=== PATIENT | female | born 1975 | race Caucasian/White ===

== ENCOUNTER 2017-01-22 10:22 | Emergency (ER) | payer MEDICAID ==
[2017-01-22] MEDS ORDERED: Sodium Chloride 0.9% 1,000 ML ONE (10:58)
[2017-01-22] MEDS ORDERED: Sodium Chloride 0.9% 1,000 ML IV ONE (10:59)
--- NOTE | 2017-01-22 11:00 | C.PDOC ---
History Of Present Illness 41 year old female with a Hx of migraines and headaches who presents to the ER with a complaint of a gradual on set of a right sided headache that began on Monday, associated with photophobia, phonophobia, and nausea. Patient states she took 2 separate doses of 2 Tylenols with no relief; she reports the pain is similar to previous headaches in the past. Patient reports she has tried taking imitrex in the past but does not like the side effects; she notes she has been under a lot of stress at work lately. Denies fever, chills, neck stiffness, and vomiting. Time Seen by Provider: 01/22/17 10:45 Chief Complaint (Nursing): Headache History Per: Patient History/Exam Limitations: no limitations Onset/Duration Of Symptoms: Days, Gradual Current Symptoms Are (Timing): Still Present Quality: Aching Preceeding Symptoms: None Associated Symptoms: Photophobia, Nausea. denies: Vomiting Recent travel outside of the [place]: No Past Medical History Reviewed: Historical Data, Nursing Documentation, Vital Signs Vital Signs: Last Vital Signs Temp 97.4 F L 01/22/17 12:25 Pulse 68 01/22/17 12:25 Resp 16 01/22/17 12:25 BP 110/74 01/22/17 12:25 Pulse Ox 98 01/26/17 11:20 - Medical History PMH: Migraine Surgical History: No Surg Hx Family History: States: Unknown Family Hx - Social History Hx Tobacco Use: No Hx Alcohol Use: No Hx Substance Use: No - Immunization History Hx Tetanus Toxoid Vaccination: No Hx Influenza Vaccination: Yes (05/2016) Hx Pneumococcal Vaccination: No Review Of Systems Constitutional: Negative for: Fever, Chills Gastrointestinal: Positive for: Nausea. Negative for: Vomiting, Abdominal Pain Skin: Negative for: Rash Neurological: Positive for: Headache. Negative for: Weakness, Numbness, Dizziness Physical Exam - Physical Exam Appears: Non-toxic, Other (appears uncomfortable) Skin: Normal Color, Warm, Dry Head: Atraumatic, Normacephalic Eye(s): bilateral: Normal Inspection, PERRL, EOMI Oral Mucosa: Moist Neck: Normal, Supple Chest: Symmetrical, No Tenderness Cardiovascular: Rhythm Regular, No Murmur Respiratory: Normal Breath Sounds, No Wheezing Gastrointestinal/Abdominal: Soft, No Tenderness Neurological/Psych: Oriented x3, Normal Speech, Normal Cognition, Normal Cranial Nerves, Normal Motor, Normal Sensation ED Course And Treatment O2 Sat by Pulse Oximetry: 98 (Room air) Pulse Ox Interpretation: Normal Medical Decision Making Medical Decision Making: Plan: * Reglan * IV fluids On reevaluation, patient is resting quietly and reports decreased pain, will add on tylenol. 1208 pm p[t feeling much better, sts she is ready to go home, will d/c with pmd and neuro f/u Disposition Counseled Patient/Family Regarding: Diagnosis, Need For Followup - Disposition Referrals: Leonard Pedroza MD [Staff Provider] - Disposition: HOME/ ROUTINE Disposition Time: 12:09 Condition: IMPROVED Additional Instructions: Stay well hydrated. Follow up with neurologist and PMD. Please take Tylenol at onset of headache. Maintain headache diary. Return to ER for any worsening symptoms. Instructions: Migraine Headache (ED) Forms: General Discharge Instructions, [facility] (Mongolian), Work Excuse - Clinical Impression Clinical Impression: Migraine - Scribe Statement The provider has reviewed the documentation as recorded by the Scribchetan Chandlre All medical record entries made by the Scribe were at my direction and personally dictated by me. I have reviewed the chart and agree that the record accurately reflects my personal performance of the history, physical exam, medical decision making, and the department course for this patient. I have also personally directed, reviewed, and agree with the discharge instructions and disposition.
--- NOTE | 2017-01-22 11:28 | C.PDOC ---
Time Seen by Provider: 01/22/17 10:45 Chief Complaint (Nursing): Headache Past Medical History Vital Signs: Last Vital Signs Temp 98.4 F 01/22/17 10:33 Pulse 97 H 01/22/17 10:33 Resp 20 01/22/17 10:33 BP 116/78 01/22/17 10:33 Pulse Ox 98 01/22/17 10:33 - Medical History PMH: Migraine Family History: States: Unknown Family Hx - Social History Hx Tobacco Use: No Hx Alcohol Use: No Hx Substance Use: No - Immunization History Hx Tetanus Toxoid Vaccination: No Hx Influenza Vaccination: Yes (05/2016) Hx Pneumococcal Vaccination: No ED Course And Treatment O2 Sat by Pulse Oximetry: 98 Disposition - Disposition Forms: [facility] ([place]ese)
[2017-01-22] MEDS ORDERED: Bacitracin 500 Units/gm Oint Foilpak UD ONE (12:21)
[2017-01-22 12:26] VITALS: BP 110/74; PULSE 68; RESP 16; TEMP 97.4
[2017-01-26 11:21] VITALS: O2SAT 98
== END 2017-01-22 12:45 | disposition home or self-care (01) ==
LOC: C.ER 10:22
DX: G43.909 Migraine, unspecified, not intractable, without status migrainosus (principal)
CPT/HCPCS: 96361; 96374; 99284; J2765; J7040

== ENCOUNTER 2017-03-10 09:52 | Emergency (ER) | payer MEDICAID ==
[2017-03-10 10:03] VITALS: O2SAT 100
[2017-03-10 10:09] VITALS: BMI 21.7
[2017-03-10] MEDS ORDERED: Sodium Chloride 0.9% 1,000 ML IV ONE (10:39)
--- NOTE | 2017-03-10 10:41 | C.PDOC ---
History Of Present Illness 42 year old female with a PMH of migraines, complains of right-sided throbbing headache since this morning. She reports this is typical of her migraine headaches. She also reports associated with nausea, vomiting, and photophobia. Patient took 2 Tylenol without relief. Denies head injury, dizziness, visual changes, numbness, or weakness. Time Seen by Provider: 03/10/17 10:29 Chief Complaint (Nursing): Headache History Per: Patient History/Exam Limitations: no limitations Onset/Duration Of Symptoms: Hrs (This morning) Current Symptoms Are (Timing): Still Present Severity: Mild Quality: Aching (Throbbing) Associated Symptoms: Photophobia, Nausea, Vomiting. denies: Blurred Vision, Extremity Weakness Recent travel outside of the [place]: No Additional History Per: Patient Past Medical History Reviewed: Historical Data, Nursing Documentation, Vital Signs Vital Signs: Last Vital Signs Temp 97.8 F 03/10/17 12:13 Pulse 70 03/10/17 12:13 Resp 16 03/10/17 12:13 BP 92/56 L 03/10/17 12:13 Pulse Ox 100 03/10/17 13:08 - Medical History PMH: Migraine Surgical History: No Surg Hx Family History: States: Unknown Family Hx - Social History Hx Tobacco Use: No Hx Alcohol Use: No Hx Substance Use: No - Immunization History Hx Tetanus Toxoid Vaccination: No Hx Influenza Vaccination: Yes (05/2016) Hx Pneumococcal Vaccination: No Review Of Systems Except As Marked, All Systems Reviewed And Found Negative. Constitutional: Negative for: Other (Head injury) Eyes: Positive for: Other (Photophobia). Negative for: Vision Change Gastrointestinal: Positive for: Nausea, Vomiting Neurological: Positive for: Headache. Negative for: Weakness, Numbness, Dizziness Physical Exam - Physical Exam Appears: Well, Non-toxic, No Acute Distress Skin: Warm, Dry Head: Atraumatic, Normacephalic Eye(s): bilateral: Normal Inspection, PERRL, EOMI, Photophobia Nose: Normal Oral Mucosa: Moist Neck: Normal ROM Chest: Symmetrical Cardiovascular: Rhythm Regular, No Murmur Respiratory: Normal Breath Sounds, No Rales, No Rhonchi, No Wheezing Extremity: Bilateral: Atraumatic, Normal Color And Temperature, Normal ROM Neurological/Psych: Oriented x3, Normal Speech, No Cerebellar Signs, Normal Motor, Normal Sensation, Other (No focal deficit) Gait: Steady ED Course And Treatment O2 Sat by Pulse Oximetry: 100 (RA) Pulse Ox Interpretation: Normal Medical Decision Making Medical Decision Making: Impression: Headache Prior records reviewed: Patient last seen 01/22/17 for migraines. Patient has multiple ER visits for similar Plan: * IV NS * Reglan * UDS Progress: 1155 On reevaluation, patient reports improvement of headache. Patient is resting comfortably, tolerating PO; no neurologic deficit, no fever, and no nuchal rigidity. Patient was instructed to follow up with physician/clinic in 1- 2 days for further evaluation or return to ED if symptoms persist or worsen. Patient's status improved during Emergency Department evaluation. Disposition Counseled Patient/Family Regarding: Diagnosis, Need For Followup, Rx Given - Disposition Referrals: [facility] [Outside] Meño Scott, EBONI, SE[employer]SEMBLER [Advanced Practice Nurse] - Disposition: HOME/ ROUTINE Disposition Time: 11:59 Condition: STABLE Additional Instructions: Follow up with your primary medical doctor in 2-5 days for further evaluation. Take medications as prescribed. Return to the emergency department at any time if symptoms persist or worsen. Instructions: Migraine Headache (ED) Forms: [facility] (Mongolian) - POA Present On Arrival: None - Clinical Impression Clinical Impression: Migraine - Scribe Statement The provider has reviewed the documentation as recorded by the Jeanibchetan fisher All medical record entries made by the Jeanibchetan were at my direction and personally dictated by me. I have reviewed the chart and agree that the record accurately reflects my personal performance of the history, physical exam, medical decision making, and the department course for this patient. I have also personally directed, reviewed, and agree with the discharge instructions and disposition.
[2017-03-10 10:43] VITALS: RESP 16
[2017-03-10] MEDS ORDERED: Sodium Chloride 0.9% 1,000 ML ONE (10:47)
[2017-03-10 11:33] LABS: RBC URINE 7 /hpf (0-3); URINE BACTERIA RARE (<OCC); URINE BILIRUBIN NEGATIVE (NEGATIVE); URINE BLOOD NEGATIVE (NEGATIVE); URINE COLOR Yellow (YELLOW); URINE GLUCOSE (UA) NORMAL (Normal); URINE KETONE NEGATIVE (NEGATIVE); URINE LEUKOCYTE ESTERASE 1+ Leu/uL (Negative); URINE PROTEIN NEGATIVE (NEGATIVE); URINE UROBILINOGEN NORMAL mg/dL (0.2-1.0); WBC URINE 11 /hpf (0-5)
[2017-03-10 12:14] VITALS: BP 92/56; PULSE 70; TEMP 97.8
== END 2017-03-10 12:48 | disposition home or self-care (01) ==
LOC: C.ER 09:52
DX: G43.909 Migraine, unspecified, not intractable, without status migrainosus (principal)
CPT/HCPCS: 80324; 80345; 80346; 80349; 80353; 80358; 80361; 81001; 83992; 96361; 96374; 99285; J2765; J7040

== ENCOUNTER 2018-01-24 18:14 | Emergency (ER) | payer MEDICAID, OTHER ==
[2018-01-24 18:32] VITALS: TEMP 98.2
--- NOTE | 2018-01-24 20:19 | C.PDOC ---
History Of Present Illness 42 year old female presents to the ED c/o right foot pain and swelling. Patient reports that while at work today a shelf fell and landed on her foot. Patient is ambulating with a light limp due to the pain. 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 Patient denies any other injury, weakness, numbness. Time Seen by Provider: 01/24/18 19:29 Chief Complaint (Nursing): Lower Extremity Problem/Injury History Per: Patient History/Exam Limitations: no limitations Onset/Duration Of Symptoms: Hrs Current Symptoms Are (Timing): Still Present Recent travel outside of the [place]: No Additional History Per: Patient - Ankle/Foot Description Of Injury: Struck Against Object Currently Unable To: Bend Or Move Alleviating Factor(s): denies: OTC Pain Medication Past Medical History Reviewed: Historical Data, Nursing Documentation, Vital Signs Vital Signs: Last Vital Signs Temp 98.2 F 01/24/18 18:30 Pulse 84 01/24/18 20:23 Resp 16 01/24/18 20:23 BP 122/81 01/24/18 20:23 Pulse Ox 100 01/24/18 23:12 - Medical History PMH: Migraine Surgical History: No Surg Hx Family History: States: Unknown Family Hx - Social History Hx Tobacco Use: No Hx Alcohol Use: No Hx Substance Use: No - Immunization History Hx Tetanus Toxoid Vaccination: No Hx Influenza Vaccination: Yes (05/2016) Hx Pneumococcal Vaccination: No Review Of Systems Constitutional: Negative for: Fever, Chills Cardiovascular: Negative for: Chest Pain Respiratory: Negative for: Cough, Shortness of Breath Gastrointestinal: Negative for: Nausea, Vomiting Musculoskeletal: Positive for: Foot Pain Skin: Negative for: Rash Neurological: Negative for: Weakness, Numbness Physical Exam - Physical Exam Appears: Non-toxic, No Acute Distress Skin: Normal Color, Warm, Dry Head: Atraumatic, Normacephalic Eye(s): bilateral: Normal Inspection Extremity: Normal ROM (of right toes), Tenderness (right foot dorsal aspect), Capillary Refill (< 2 seconds), Swelling (dorsal aspect right foot and ecchymois ) Pulses: Left Dorsalis Pedis: Normal, Right Dorsalis Pedis: Normal Neurological/Psych: Oriented x3, Normal Speech, Normal Motor, Normal Sensation Gait: Other (with slight limp due to pain) ED Course And Treatment O2 Sat by Pulse Oximetry: 100 (ON RA) Pulse Ox Interpretation: Normal - Other Rad Left foot X-Ray X-Ray: Interpreted by Me, Viewed By Me Interpretation: Fracture observed Progress Note: Plan: - Left foot X-Ray. - Motrin 650 mg PO. Patient was placed on a orthopedic shoe for support and instructed in crutch walking and was advised to follow up with Podiatry. 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 - Scribe Statement The provider has reviewed the documentation as recorded by the Scribe Hernesto Willams All medical record entries made by the Scribe were at my direction and personally dictated by me. I have reviewed the chart and agree that the record accurately reflects my personal performance of the history, physical exam, medical decision making, and the department course for this patient. I have also personally directed, reviewed, and agree with the discharge instructions and disposition.
[2018-01-24 20:24] VITALS: BP 122/81; PULSE 84; RESP 16
[2018-01-24 23:09] VITALS: O2SAT 100
--- NOTE | 2018-01-25 07:28 | RAD ---
Date of service: 01/24/2018 PROCEDURE: Right Foot Radiographs. HISTORY: r/o fx COMPARISON: None. FINDINGS: BONES: No fracture. JOINTS: First metatarsal-phalangeal joint arthropathy. Hallux valgus orientation noted SOFT TISSUES: Normal. OTHER FINDINGS: None. IMPRESSION: No fracture Other findings as above.
== END 2018-01-24 20:23 | disposition home or self-care (01) ==
LOC: C.ER 18:14
DX: S90.31XA Contusion of right foot, initial encounter (principal); W22.8XXA Striking against or struck by other objects, initial encounter; Y92.89 Other specified places as the place of occurrence of the external cause; Y99.0 Civilian activity done for income or pay